=== PATIENT | female | born 1965 | race Hispanic/Latino ===

== ENCOUNTER 2016-10-21 09:58 | Emergency (ER) | payer BC ==
[2016-10-21 09:59] VITALS: BMI 33.0
[2016-10-21 10:11] VITALS: BP 169/93; PULSE 73; RESP 16; TEMP 98.1; O2SAT 96
--- NOTE | 2016-10-21 10:40 | ED PDOC ---
Arrival/HPI - General Chief Complaint: Abnormal Skin Integrity Time Seen by Provider: 10/21/16 10:23 Historian: Patient, Family - History of Present Illness Narrative History of Present Illness (Text): 10/21/16 10:37 This 51 yo female presents to this ED c/o pelvic rash x 1 day. Patient stated skin is red, and pruritic. Patient denies other complains. Time/Duration: Other (see hpi) Context: Home Past Medical History - Provider Review Nursing Documentation Reviewed: Yes - Infectious Disease Hx of Infectious Diseases: None - Tetanus Immunization Tetanus Immunization: Unknown - Cardiac Hx Hypertension: Yes Hx Pacemaker: No - Pulmonary Hx Chronic Obstructive Pulmonary Disease (COPD): Yes - Neurological Hx Neurological Disorder: No - HEENT Hx HEENT Disorder: No - Renal Hx Renal Disorder: No - Endocrine/Metabolic Hx Endocrine Disorders: No - Hematological/Oncological Hx Blood Disorders: No Hx Blood Transfusions: No Hx Blood Transfusion Reaction: No - Integumentary Hx Dermatological Disorder: No - Musculoskeletal/Rheumatological Hx Musculoskeletal Disorders: No Hx Falls: No - Gastrointestinal Hx Gastritis: Yes - Genitourinary/Gynecological Hx Genitourinary Disorders: No - Psychiatric Hx Anxiety: Yes Hx Depression: No Hx Substance Use: No - Past Surgical History Past Surgical History: Non-Contributing - Surgical History Hx Cholecystectomy: Yes Hx Hysterectomy: Yes - Anesthesia Hx Anesthesia: Yes Hx Anesthesia Reactions: No Hx Malignant Hyperthermia: No - Suicidal Assessment Feels Threatened In Home Enviroment: No Family/Social History - Physician Review Nursing Documentation Reviewed: Yes Family/Social History: Other (non-contributory) Smoking Status: Heavy Smoker > 10 Cigarettes Daily Hx Alcohol Use: No Hx Substance Use: No Hx Substance Use Treatment: No Allergies/Home Meds Allergies/Adverse Reactions: Allergies No Known Allergies Allergy (Verified 10/21/16 10:11) Home Medications: Home Meds Medication Instructions Recorded Confirmed Sertraline [Zoloft] 50 mg PO DAILY 08/10/11 10/21/16 Losartan [Cozaar] 50 mg PO DAILY 06/05/14 10/21/16 Review of Systems - Review of Systems Constitutional: Normal. absent: Fatigue, Weight Change, Fevers Eyes: Normal ENT: Normal Respiratory: Normal Cardiovascular: Normal Gastrointestinal: Normal Genitourinary Female: Normal Musculoskeletal: Normal Skin: Rash, Pruritis, Cellulitis. absent: Skin Lesions, Laceration, Abscess Neurological: Normal Endocrine: Normal Hemo/Lymphatic: Normal Psychiatric: Normal Physical Exam Vital Signs Temp Pulse Resp BP Pulse Ox 10/21/16 10:04 98.1 F 73 16 169/93 H 96 Temperature: Afebrile Blood Pressure: Normal Pulse: Regular Respiratory Rate: Normal Appearance: Positive for: Well-Appearing, Non-Toxic, Comfortable Pain Distress: None Mental Status: Positive for: Alert and Oriented X 3 - Systems Exam Head: Present: Atraumatic, Normocephalic Pupils: Present: PERRL Extroacular Muscles: Present: EOMI Conjunctiva: Present: Normal Mouth: Present: Moist Mucous Membranes Neck: Present: Normal Range of Motion Back: Present: Normal Inspection Upper Extremity: Present: Normal Inspection, Normal ROM. No: Cyanosis, Edema Lower Extremity: Present: Normal Inspection, Normal ROM. No: Edema Neurological: Present: GCS=15, CN II-XII Intact, Speech Normal Skin: Present: Warm, Dry, Rashes ((+) mild erythematous erythema on the folding of skin near old scar. It appears as candidiasis associated with mild cellulitis. No abscess, or ulcers), Normal Color Psychiatric: Present: Alert, Oriented x 3, Normal Insight, Normal Concentration Medical Decision Making ED Course and Treatment: 10/21/16 10:42 Re-evaluation. Patient feels better. Discussed results and plan with patient who expresses understanding. All questions answered and there is agreement with the plan to discharge home with instructions. Patient stable for discharge. Return if symptoms persist or worsen. Patient was recommended to f/u Melina in 2-3 days for wound check, and to return to emergency if symptoms worsen. Re-evaluation Time: 10:42 Reassessment Condition: Re-examined, Improved Disposition/Present on Arrival - Present on Arrival Any Indicators Present on Arrival: No History of DVT/PE: No History of Uncontrolled Diabetes: No Urinary Catheter: No History of Decub. Ulcer: No History Surgical Site Infection Following: None - Disposition Have Diagnosis and Disposition been Completed?: Yes Diagnosis: Cutaneous candidiasis, Cellulitis Disposition: HOME/ ROUTINE Disposition Time: 10:50 Isolation: Contact Patient Plan: Observation Patient Problems: Current Active Problems Problem Status Onset Cellulitis Acute Cutaneous candidiasis Acute Condition: GOOD Discharge Instructions (ExitCare): Cellulitis (ED), Skin Yeast Infection (ED) Additional Instructions: Call private doctor for wound check in 2-3 days. Take medication with food. Apply cream on affected area x 2 times a day for 2 weeks. Return to emergency if symptoms worsen. Prescriptions: Clindamycin [Cleocin] 300 mg PO QID #28 cap Referrals: Hernan Summers DO [Staff Provider] - Follow up with primary Forms: NCR ([place])
== END 2016-10-21 11:15 | disposition home or self-care (01) ==
LOC: ED 09:58
DX: B37.2 Candidiasis of skin and nail (principal); L03.311 Cellulitis of abdominal wall

== ENCOUNTER 2016-11-13 15:59 | Emergency (ER) | payer BC ==
[2016-11-13 16:11] VITALS: TEMP 97.9; BMI 33.9
[2016-11-13] MEDS ORDERED: Sodium Chloride 0.9% 1,000 ML IV STA (16:37)
[2016-11-13 17:16] LABS: BASO # 0.02 K/mm3 (0.0-2.0); BASO % 0.4 % (0.0-3.0); EOS # 0.2 (0.0-0.7); EOS % 4.5 % (1.5-5.0); GRAN # 2.91 (1.4-6.5); GRAN % 54.6 % (50.0-68.0); HEMATOCRIT 39.7 % (36.0-48.0); LYMPH # 1.8 (1.2-3.4); LYMPH % 34.1 % (22.0-35.0); MEAN CELL VOLUME 91.1 fl (80.0-105.0); MEAN PLATELET VOLUME 10.1 fl (7.0-11.0); MONO # 0.3 (0.1-0.6); MONO % 6.4 % (1.0-6.0); RED CELL DISTRIBUTION WIDTH 13.6 % (11.5-14.5); WHITE BLOOD COUNT 5.3 10^3/ul (4.5-11.0)
[2016-11-13 17:20] LABS: ALB/GLOB RATIO 1.7 (1.1-1.8); ALKALINE PHOSPHATASE 83 U/L (38-126); ALT/SGPT 42 U/L (7-56); AST/SGOT 25 U/L (14-36); BILIRUBIN,TOTAL 0.3 mg/dL (0.2-1.3); BLOOD UREA NITROGEN 16 mg/dL (7-21); CALCIUM 8.7 mg/dL (8.4-10.5); CARBON DIOXIDE 30 mmol/L (21-33); CHLORIDE 105 mmol/L (98-107); GFR AFRICAN-AMERICAN > 60; GLUCOSE,RANDOM 126 mg/dL (70-110); LIPASE 119 U/L (23-300); POTASSIUM 3.9 mmol/L (3.6-5.0); SODIUM 142 mmol/L (132-148); TOTAL PROTEIN 5.9 g/dL (5.8-8.3)
--- NOTE | 2016-11-13 17:23 | RAD ---
HISTORY: abd pain COMPARISON: Chest x-ray performed 01/14/16 TECHNIQUE: Chest, one view. FINDINGS: Examination limited by habitus. LUNGS: No focal consolidation. Please note that chest x-ray has limited sensitivity for the detection of pulmonary masses. PLEURA: No significant pleural effusion identified. No definite pneumothorax . CARDIOVASCULAR: Heart size appears within normal limits. OSSEOUS STRUCTURES: Degenerative changes. High-riding right humeral head may be seen in setting of chronic rotator cuff injury. VISUALIZED UPPER ABDOMEN: Unremarkable. OTHER FINDINGS: None. IMPRESSION: No focal consolidation, significant pleural effusion, or definite pneumothorax identified. High-riding right humeral head may be seen in setting of chronic rotator cuff injury. Correlate clinically.
--- NOTE | 2016-11-13 17:28 | ED PDOC ---
Arrival/HPI - General Chief Complaint: GI Problem Time Seen by Provider: 11/13/16 16:36 Historian: Patient - History of Present Illness Narrative History of Present Illness (Text): 11/13/16 17:25 51yr old female presents today with left sided abdominal pain, diarrhea and nausea x 1 week. no cp or sob. no fever/chills. no urinary symptoms. pt states she started with sharp stabbing left lower abdominal pain and developed watery diarrhea. pt states she took immodium with slight improvement. pt states diarrhea returned and pain has worsened. no other complaints. Time/Duration: 1 week Symptom Onset: Gradual Symptom Course: Worsening Quality: Aching, Stabbing Severity Level: 6 Past Medical History - Provider Review Nursing Documentation Reviewed: Yes - Travel History Have you recently traveled outside [place] w/in the past 3 mons?: No - Infectious Disease Hx of Infectious Diseases: None - Tetanus Immunization Tetanus Immunization: Unknown - Cardiac Hx Hypertension: Yes Hx Pacemaker: No - Pulmonary Hx Chronic Obstructive Pulmonary Disease (COPD): Yes - Neurological Hx Neurological Disorder: No - HEENT Hx HEENT Disorder: No - Renal Hx Renal Disorder: No - Endocrine/Metabolic Hx Endocrine Disorders: No - Hematological/Oncological Hx Blood Disorders: No Hx Blood Transfusions: No Hx Blood Transfusion Reaction: No - Integumentary Hx Dermatological Disorder: No - Musculoskeletal/Rheumatological Hx Musculoskeletal Disorders: No Hx Falls: No - Gastrointestinal Hx Gastritis: Yes - Genitourinary/Gynecological Hx Genitourinary Disorders: No - Psychiatric Hx Anxiety: Yes Hx Depression: No Hx Substance Use: No - Past Surgical History Past Surgical History: Non-Contributing - Surgical History Hx Cholecystectomy: Yes Hx Hysterectomy: Yes - Anesthesia Hx Anesthesia: Yes Hx Anesthesia Reactions: No Hx Malignant Hyperthermia: No - Suicidal Assessment Feels Threatened In Home Enviroment: No Family/Social History - Physician Review Nursing Documentation Reviewed: Yes Family/Social History: Unknown Family HX Smoking Status: Heavy Smoker > 10 Cigarettes Daily Hx Alcohol Use: No Hx Substance Use: No Hx Substance Use Treatment: No Allergies/Home Meds Allergies/Adverse Reactions: Allergies No Known Allergies Allergy (Verified 10/21/16 10:11) Home Medications: Home Meds Medication Instructions Recorded Confirmed Sertraline [Zoloft] 50 mg PO DAILY 08/10/11 11/13/16 Losartan [Cozaar] 50 mg PO DAILY 06/05/14 11/13/16 Review of Systems - Review of Systems Constitutional: absent: Fatigue, Fevers Respiratory: absent: SOB, Cough Cardiovascular: absent: Chest Pain, Palpitations Gastrointestinal: Abdominal Pain, Diarrhea, Nausea. absent: Constipation, Vomiting Genitourinary Female: absent: Dysuria, Frequency, Hematuria Musculoskeletal: absent: Arthralgias, Back Pain, Neck Pain Skin: absent: Rash, Pruritis Neurological: absent: Headache, Dizziness Psychiatric: absent: Anxiety, Depression, Suicidal Ideation Physical Exam Vital Signs Reviewed: Yes Vital Signs Temp Pulse Resp BP Pulse Ox 11/13/16 18:00 58 L 18 149/92 H 98 11/13/16 16:10 97.9 F 71 16 143/90 96 Temperature: Afebrile Blood Pressure: Normal Pulse: Regular Respiratory Rate: Normal Appearance: Positive for: Well-Appearing, Non-Toxic, Comfortable Pain Distress: None Mental Status: Positive for: Alert and Oriented X 3 - Systems Exam Head: Present: Atraumatic Mouth: Present: Moist Mucous Membranes Neck: Present: Normal Range of Motion Respiratory/Chest: Present: Clear to Auscultation, Good Air Exchange. No: Respiratory Distress, Accessory Muscle Use Cardiovascular: Present: Regular Rate and Rhythm, Normal S1, S2. No: Murmurs Abdomen: Present: Tenderness (LLQ tenderness), Normal Bowel Sounds. No: Distention, Peritoneal Signs, Rebound, Guarding Back: Present: Normal Inspection. No: CVA Tenderness, Midline Tenderness, Paraspinal Tenderness Upper Extremity: Present: Normal ROM Lower Extremity: Present: Normal ROM Neurological: Present: GCS=15, Speech Normal Skin: Present: Warm, Dry, Normal Color. No: Rashes Psychiatric: Present: Alert, Oriented x 3 Medical Decision Making ED Course and Treatment: 11/13/16 17:28 Patient is nontoxic well appearing with stable vital signs presenting with llq abdominal pain CBC wnl CMP wnl Lipase wnl Urinalysis wnl CAT scan FINDINGS: Artifacts: Motion artifact degrades image quality. Lower thorax: Heart size is normal. There is a small hiatal hernia. There is dependent atelectasis at the lung bases. ABDOMEN: Liver: There is fatty infiltration of the liver. Gallbladder and bile ducts: Gallbladder is surgically absent. Common duct is prominent. Pancreas: unremarkable Spleen: unremarkable Adrenals: unremarkable Kidneys and ureters: unremarkable Stomach and bowel: Stomach is almost empty. Rotation is normal. There is mild duodenal and proximal jejunal wall and fold thickening. Mid small bowel is mildly distended with fluid and air. Distention decreases distally. There is mild terminal ileal wall thickening with fatty infiltration of the terminal ileal wall. Appendix is unremarkable. There is fatty infiltration of the cecum and ascending colon wall.Colon is incompletely distended which limits evaluation.There is diverticulosis. There is sigmoid and rectal wall thickening. Appendix: See above. PELVIS: Bladder: Bladder is almost empty. There is mild bladder wall thickening. Reproductive: Uterus and adnexal structures are unremarkable. ABDOMEN and PELVIS: Intraperitoneal space: There is no free air or free fluid. Bones/joints: There are no acute osseous abnormalities. There is minimal degenerative change Soft tissues: There is a small fat containing umbilical hernia. Vasculature: There are vascular calcifications. Aorta is mildly tortuous. Lymph nodes: There is no pathologic adenopathy. IMPRESSION: Colitis versus enterocolitis; mild bladder wall thickening, underdistention versus inflammation; fatty liver; cholecystectomy Case was discussed in depth with Dr. Summers. We'll discharge the patient home on Cipro and Flagyl and advised follow-up with him as well as GI. Patient reassessment: Patient feeling better after medications. I discussed all results in depth with the patient advised taking antibiotics as prescribed following up with a primary care physician as well as the GI doctor. I advised immediate return if symptoms worsen persist or if new concerning symptoms develop Patient verbalizes understanding of discharge instructions and need for immediate followup. all aspects of this case were discussed the attending of record. Impression: colitis Motrin every 6 hours as needed for pain Cipro one tablet twice daily x10 days Flagyl one tablet three times daily x10 days Follow up with primary care physician within the next 2 days Return immediately if symptoms worsen persist or if new symptoms develop: High fevers, increasing pain, vomiting, diarrhea or any other concerning symptoms develop - Lab Interpretations Lab Results: 11/13/16 17:00 11/13/16 17:00 Lab Results 11/13/16 17:50: Urine Color Yellow, Urine Appearance Clear, Urine pH 6.5, Ur Specific [place] 1.020, Urine Protein Negative, Urine Glucose (UA) Negative, Urine Ketones Negative, Urine Blood Negative, Urine Nitrate Negative, Urine Bilirubin Negative, Urine Urobilinogen 0.2, Ur Leukocyte Esterase Negative 11/13/16 17:00: WBC 5.3, RBC 4.36, Hgb 13.1, Hct 39.7, MCV 91.1, MCH 30.0, MCHC 33.0, RDW 13.6, Plt Count 176, MPV 10.1, Gran % 54.6, Lymph % (Auto) 34.1, [place] % (Auto) 6.4 H, Eos % (Auto) 4.5, Baso % (Auto) 0.4, Gran # 2.91, Lymph # 1.8, [place] # 0.3, Eos # 0.2, Baso # 0.02 11/13/16 17:00: Sodium 142, Potassium 3.9, Chloride 105, Carbon Dioxide 30, Anion Gap 11, BUN 16, Creatinine 0.9, Est GFR ( Amer) > 60, Est GFR (Non- Af Amer) > 60, Random Glucose 126 H, Calcium 8.7, Total Bilirubin 0.3, AST 25, ALT 42, Alkaline Phosphatase 83, Total Protein 5.9, Albumin 3.7, Globulin 2.2, Albumin/Globulin Ratio 1.7, Lipase 119 I have reviewed the lab results: Yes - RAD Interpretation Radiology Orders: 11/13/16 16:37 CHEST PORTABLE [RAD] Stat 11/13/16 16:59 ABD & PELVIS IV CONTRAST ONLY [CT] Stat - Medication Orders Current Medication Orders: Discontinued Medications Sodium Chloride (Sodium Chloride 0.9%) 1,000 mls @ 999 mls/hr IV .Q1H1M STA Stop: 11/13/16 17:37 Last Admin: 11/13/16 17:46 Dose: 999 mls/hr eMAR Start Stop Document 11/13/16 17:46 ME (Rec: 11/13/16 17:47 ME [id number]) Intravenous Solution Start Date 11/13/16 Start Time 17:47 Ketorolac Tromethamine (Toradol) 30 mg IVP STAT STA Stop: 11/13/16 17:30 Last Admin: 11/13/16 17:47 Dose: 30 mg MAR Pain Assessment Document 11/13/16 17:47 ME (Rec: 11/13/16 17:48 ME [id number]) Pain Reassessment Is this a pain reassessment? No Sleep Is patient sleeping during reassessment? No Pain Scale Used Pain Scale Used Numeric Location Pain Location Body Site Abdomen Description Intensity of Pain at present 7 Acceptable Level of Pain 2 IVP Administration Document 11/13/16 17:47 ME (Rec: 11/13/16 17:48 ME [id number]) Charges for Administration # of IVP Administrations 1 Disposition/Present on Arrival - Present on Arrival Any Indicators Present on Arrival: No History of DVT/PE: No History of Uncontrolled Diabetes: No Urinary Catheter: No History of Decub. Ulcer: No History Surgical Site Infection Following: None - Disposition Have Diagnosis and Disposition been Completed?: Yes Diagnosis: Colitis Disposition: HOME/ ROUTINE Disposition Time: 21:53 Patient Plan: Discharge Condition: GOOD Discharge Instructions (ExitCare): Colitis (ED) Additional Instructions: Motrin every 6 hours as needed for pain Cipro one tablet twice daily x10 days Flagyl one tablet three times daily x10 days Follow up with primary care physician within the next 2 days Return immediately if symptoms worsen persist or if new symptoms develop: High fevers, increasing pain, vomiting, diarrhea or any other concerning symptoms develop Prescriptions: Ciprofloxacin [Cipro] 500 mg PO BID #20 tab Ibuprofen [Motrin] 600 mg PO Q6H PRN #20 tab PRN Reason: pain/fever reduction metroNIDAZOLE [Flagyl] 500 mg PO TID #30 tab Referrals: Hernan Summers DO [Primary Care Provider] - Follow up with primary Danish Bonilla MD [Staff Provider] - Follow up with primary Mita Whiteside MD, MD [Medical Doctor] - Follow up with primary Forms: [employer] (German), WORK NOTE
[2016-11-13 18:16] LABS: PH,URINE 6.5 (4.7-8.0); URINE BILIRUBIN NEGATIVE (NEGATIVE); URINE BLOOD NEGATIVE (NEGATIVE); URINE GLUCOSE (UA) NEGATIVE (NEGATIVE); URINE KETONE NEGATIVE (NEGATIVE); URINE LEUKOCYTE ESTERASE NEGATIVE Leu/uL (NEGATIVE); URINE PROTEIN NEGATIVE mg/dL (<30 mg/dL); URINE UROBILINOGEN 0.2 E.U./dL (<1 E.U./dL)
[2016-11-13 18:19] LABS: URINE APPEARANCE CLEAR (CLEAR); URINE COLOR YELLOW (YELLOW)
[2016-11-13] MEDS ORDERED: Iohexol 350 MG/100 ML VIAL ONE (18:49)
--- NOTE | 2016-11-13 21:05 | CT ---
EXAM: CT Abdomen and Pelvis With Intravenous Contrast EXAM DATE/TIME: 11/13/2016 4:59 PM CLINICAL HISTORY: 51 years old, female; Pain; Abdominal pain; Acute; Additional info: Llq abd pain, diarrhea TECHNIQUE: Axial computed tomography images of the abdomen and pelvis with intravenous contrast. All CT scans at this facility use one or more dose reduction techniques, viz.: automated exposure control; ma/kV adjustment per patient size (including targeted exams where dose is matched to indication; i.e. head); or iterative reconstruction technique. Coronal and sagittal reformatted images were created and reviewed. CONTRAST: 100 mL of omni 350 administered intravenously. COMPARISON: There are no prior studies for comparison. FINDINGS: Artifacts: Motion artifact degrades image quality. Lower thorax: Heart size is normal. There is a small hiatal hernia. There is dependent atelectasis at the lung bases. ABDOMEN: Liver: There is fatty infiltration of the liver. Gallbladder and bile ducts: Gallbladder is surgically absent. Common duct is prominent. Pancreas: unremarkable Spleen: unremarkable Adrenals: unremarkable Kidneys and ureters: unremarkable Stomach and bowel: Stomach is almost empty. Rotation is normal. There is mild duodenal and proximal jejunal wall and fold thickening. Mid small bowel is mildly distended with fluid and air. Distention decreases distally. There is mild terminal ileal wall thickening with fatty infiltration of the terminal ileal wall. Appendix is unremarkable. There is fatty infiltration of the cecum and ascending colon wall.Colon is incompletely distended which limits evaluation.There is diverticulosis. There is sigmoid and rectal wall thickening. Appendix: See above. PELVIS: Bladder: Bladder is almost empty. There is mild bladder wall thickening. Reproductive: Uterus and adnexal structures are unremarkable. ABDOMEN and PELVIS: Intraperitoneal space: There is no free air or free fluid. Bones/joints: There are no acute osseous abnormalities. There is minimal degenerative change Soft tissues: There is a small fat containing umbilical hernia. Vasculature: There are vascular calcifications. Aorta is mildly tortuous. Lymph nodes: There is no pathologic adenopathy. IMPRESSION: Colitis versus enterocolitis; mild bladder wall thickening, underdistention versus inflammation; fatty liver; cholecystectomy Additional findings as described above.
[2016-11-13 21:57] VITALS: BP 179/90; PULSE 62; RESP 14; O2SAT 99
--- NOTE | 2016-11-15 10:26 | CARD ---
APPROVED REPORT EKG Measurement Heart [id number] <Conclusion> Sinus bradycardia Low voltage QRS Nonspecific T wave abnormality Abnormal ECG
== END 2016-11-13 22:10 | disposition home or self-care (01) ==
LOC: ED 15:59
DX: K52.9 Noninfective gastroenteritis and colitis, unspecified (principal)
CPT/HCPCS: 71010; 74177; 80053; 81003; 83690; 85025; 96374; 99285; J1885; J7040; Q9967

== ENCOUNTER 2017-07-06 11:09 | Emergency (ER) | payer BC ==
[2017-07-06 11:25] VITALS: BMI 34.9
[2017-07-06 11:29] VITALS: RESP 18; TEMP 98.1; O2SAT 98
[2017-07-06] MEDS: Albuterol-Ipratrop 3 mg / 0.5 (3 ml) UD IH SCH ×3 (11:54→12:23)
--- NOTE | 2017-07-06 12:02 | ED PDOC ---
Arrival/HPI - General Time Seen by Provider: 07/06/17 11:13 Historian: Patient - History of Present Illness Narrative History of Present Illness (Text): 07/06/17 11:58 Patient is a 52 F with history of COPD, hypertension who presents with complaints of difficulty breathing and chest tightness once she began smoking two days ago after being on chantix and not smoking for a couple of weeks. Patient states she has associated productive cough and rib tenderness. Denies fevers, chills, abdominal pain, nausea, vomiting, diarrhea, headache, dysuria, chest pain, palpitations. Time/Duration: Prior to Arrival Symptom Onset: Gradual Symptom Course: Unchanged Quality: Aching Past Medical History - Provider Review Nursing Documentation Reviewed: Yes - Infectious Disease Hx of Infectious Diseases: None - Tetanus Immunization Tetanus Immunization: Unknown - Cardiac Hx Cardiac Disorders: Yes Hx Hypertension: Yes Hx Pacemaker: No - Pulmonary Hx Chronic Obstructive Pulmonary Disease (COPD): Yes Hx Sleep Apnea: Yes - Neurological Hx Neurological Disorder: No - HEENT Hx HEENT Disorder: No - Renal Hx Renal Disorder: No - Endocrine/Metabolic Hx Endocrine Disorders: No - Hematological/Oncological Hx Blood Disorders: No Hx Blood Transfusions: No Hx Blood Transfusion Reaction: No - Integumentary Hx Dermatological Disorder: No - Musculoskeletal/Rheumatological Hx Musculoskeletal Disorders: No Hx Falls: No - Gastrointestinal Hx Gastritis: Yes - Genitourinary/Gynecological Hx Genitourinary Disorders: No - Psychiatric Hx Psychophysiologic Disorder: Yes Hx Anxiety: Yes Hx Depression: No Hx Substance Use: No - Past Surgical History Past Surgical History: Non-Contributing - Surgical History Hx Cholecystectomy: Yes Hx Hysterectomy: Yes - Anesthesia Hx Anesthesia: Yes Hx Anesthesia Reactions: No Hx Malignant Hyperthermia: No - Suicidal Assessment Feels Threatened In Home Enviroment: No Family/Social History - Physician Review Nursing Documentation Reviewed: Yes Family/Social History: Neoplasm/Cancer (Stomach cancer grandmother), Other (COPD -father) Smoking Status: Heavy Smoker > 10 Cigarettes Daily Hx Alcohol Use: No Hx Substance Use: No Hx Substance Use Treatment: No Allergies/Home Meds Allergies/Adverse Reactions: Allergies No Known Allergies Allergy (Verified 12/17/16 16:02) Home Medications: Home Meds Medication Instructions Recorded Confirmed Sertraline [Zoloft] 50 mg PO DAILY 08/10/11 12/17/16 Losartan [Cozaar] 50 mg PO DAILY 06/05/14 12/17/16 Review of Systems - Physician Review All systems were reviewed & negative as marked: Yes - Review of Systems Constitutional: Normal. absent: Fatigue, Fevers Eyes: absent: Vision Changes Respiratory: SOB, Cough, Sputum. absent: Wheezing Cardiovascular: absent: Chest Pain, Palpitations Gastrointestinal: Normal. absent: Abdominal Pain, Nausea, Vomiting Genitourinary Female: Normal. absent: Dysuria Musculoskeletal: Normal. absent: Back Pain Neurological: Normal. absent: Headache, Dizziness Endocrine: Normal. absent: Diaphoresis Psychiatric: Normal. absent: Anxiety Physical Exam Vital Signs Reviewed: Yes Vital Signs Temp Pulse Resp BP Pulse Ox 07/06/17 14:09 67 18 138/79 98 07/06/17 12:33 65 18 145/81 98 07/06/17 11:10 98.1 F 66 18 149/95 H 98 Temperature: Afebrile Blood Pressure: Normal Pulse: Regular Respiratory Rate: Normal Appearance: Positive for: Well-Appearing, Non-Toxic, Comfortable Pain Distress: None Mental Status: Positive for: Alert and Oriented X 3 - Systems Exam Head: Present: Atraumatic, Normocephalic, Ecchymosis Pupils: Present: PERRL Extroacular Muscles: Present: EOMI Conjunctiva: Present: Normal Mouth: Present: Moist Mucous Membranes Neck: Present: Normal Range of Motion Respiratory/Chest: Present: Clear to Auscultation. No: Wheezes, Rales, Rhonchi Cardiovascular: Present: Regular Rate and Rhythm, Normal S1, S2 Abdomen: Present: Normal Bowel Sounds. No: Tenderness, Distention Upper Extremity: Present: Normal Inspection, Other (no clubbing). No: Edema Lower Extremity: Present: Normal Inspection. No: Edema Neurological: Present: GCS=15, CN II-XII Intact, Speech Normal Skin: Present: Warm, Normal Color Psychiatric: Present: Alert, Oriented x 3, Normal Insight, Normal Concentration Medical Decision Making ED Course and Treatment: 07/06/17 12:04 Duonenoam, Solu-Medrol Chest X-Ray-2 view Motrin for pain possible costochondritis 07/06/17 14:15 Chest X-Ray came back with bronchovascular markings, left lung atelectasis will discharge patient with nasal spray and prednisone. 07/06/17 14:26 FINDINGS: LUNGS: Low lung volumes with crowded bronchovascular markings and minor bibasilar atelectasis left greater than right PLEURA: No significant pleural effusion identified. No pneumothorax apparent. CARDIOVASCULAR: Normal. OSSEOUS STRUCTURES: No significant abnormalities. Clips right upper quadrant of the abdomen consistent with prior cholecystectomy VISUALIZED UPPER ABDOMEN: OTHER FINDINGS: None. IMPRESSION: Low lung volumes with crowded bronchovascular markings and minor bibasilar atelectasis left greater than right Patient had no abnormalities in lab values, discharged with ocean nasal spray and prednisone and will follow up with her c java developer in 4 days and PMD within 1 week, PMD aware of patient being admitted to the emergency department. Re-evaluation Time: 14:21 (Patient states her breathing and pain has improved since duonebs, solumedrol and motrin.) Reassessment Condition: Re-examined - Lab Interpretations Lab Results: 07/06/17 13:15 07/06/17 13:15 Lab Results 07/06/17 13:15: Sodium 142, Potassium 4.2, Chloride 108 H, Carbon Dioxide 25, Anion Gap 13, BUN 13, Creatinine 0.7, Est GFR ( Amer) > 60, Est GFR (Non- Af Amer) > 60, Random Glucose 81, Calcium 8.3 L, Troponin I < 0.01 07/06/17 13:15: WBC 3.8 L D, RBC 4.40, Hgb 13.1 D, Hct 38.9, MCV 88.4, MCH 29.8 , MCHC 33.7, RDW 14.0, Plt Count 177, MPV 10.4, Gran % 48.9 L, Lymph % (Auto) 38.7 H, [place] % (Auto) 8.4 H, Eos % (Auto) 3.7, Baso % (Auto) 0.3, Gran # 1.87, Lymph # (Auto) 1.5, [place] # (Auto) 0.3, Eos # (Auto) 0.1, Baso # (Auto) 0.01 I have reviewed the lab results: Yes Interpretation: All labs normal - RAD Interpretation Radiology Orders: 07/06/17 11:47 CHEST TWO VIEWS (PA/LAT) [RAD] Stat Sales Producer: Radiologist - EKG Interpretation Interpreted by ED Physician: Yes Type: 12 lead EKG - Medication Orders Current Medication Orders: Discontinued Medications Albuterol/Ipratropium (Duoneb 3 Mg/0.5 Mg (3 Ml) Ud) 3 ml IH Q15M MAIA Stop: 07/06/17 12:31 Last Admin: 07/06/17 12:23 Dose: 3 ml Ibuprofen (Motrin Tab) 600 mg PO STAT STA Stop: 07/06/17 11:51 Last Admin: 07/06/17 11:56 Dose: 600 mg MAR Pain/Vitals Document 07/06/17 11:56 STEPHANIE (Rec: 07/06/17 11:59 STEPHANIE [id number]) Pain Reassessment Is This A Pain ReAssessment? Yes Presence of Pain Presence of Pain Yes Pain Scale Used Pain Scale Used Numeric Location Pain Location Body Site Chest Description Sharp Intensity 6 Scale Used Numeric Methylprednisolone (Solu-Medrol) 125 mg IVP STAT STA Stop: 07/06/17 11:48 Last Admin: 07/06/17 12:00 Dose: 125 mg IVP Administration Document 07/06/17 12:00 STEPHANIE (Rec: 07/06/17 12:00 STEPHANIE [id number]) Charges for Administration # of IVP Administrations 1 Disposition/Present on Arrival - Present on Arrival Any Indicators Present on Arrival: No History of DVT/PE: No History of Uncontrolled Diabetes: No Urinary Catheter: No History of Decub. Ulcer: No History Surgical Site Infection Following: None - Disposition Have Diagnosis and Disposition been Completed?: Yes Diagnosis: COPD with emphysema Disposition: HOME/ ROUTINE Disposition Time: 14:21 Patient Plan: Discharge Condition: GOOD Discharge Instructions (ExitCare): COPD Including Emphysema (DC) Additional Instructions: Ms. Mike, thank you for letting us take care of you today. You were treated for your COPD flare up. The emergency medical care you received today was directed at your acute symptoms. If you were prescribed any medication, please fill it and take as directed. It may take several days for your symptoms to resolve. Return to the Emergency Department if your symptoms worsen, do not improve, or if you have any other problems. Please contact your doctor or call one of the physicians/clinics you have been referred to that are listed on the Patient Visit Information form that is included in your discharge packet. Bring any paperwork you were given at discharge with you along with any medications you are taking to your follow up visit. Our treatment cannot replace ongoing medical care by a primary care provider (PCP) outside of the emergency department. Please follow up with your PMD Dr. Summers withing 2-5 days and follow through with your c java developer appointment this coming Saturday as discussed. Thank you for allowing the [facility] team to be part of your care today. If you had an X-Ray or CT scan: A Radiologist will review the ED reading if any change in treatment is needed we will contact you. If you had a blood, urine, or wound culture: It will take several days for the results, if any change in treatment is needed we will contact you. If you had an STI test: It will take 48 hours for the results. Please call after 1 week if you have not heard back. Prescriptions: Prednisone [Deltasone] 20 mg PO BID #5 tablet Sodium Chloride Nasal [place] [Bandera Nasal [place]] 45 sprays JODY DAILY #1 bottle
[2017-07-06 13:35] LABS: BASO # 0.01 K/mm3 (0.0-2.0); BASO % 0.3 % (0.0-3.0); EOS # 0.1 (0.0-0.7); EOS % 3.7 % (1.5-5.0); GRAN # 1.87 (1.4-6.5); GRAN % 48.9 % (50.0-68.0); HEMOGLOBIN 13.1 g/dL (12.0-16.0); LYMPH # 1.5 (1.2-3.4); LYMPH % 38.7 % (22.0-35.0); MEAN CELL VOLUME 88.4 fl (80.0-105.0); MEAN CORPUSCULAR HEMOGLOBIN 29.8 pg (25.0-35.0); MEAN CORPUSCULAR HGB CONC 33.7 g/dl (31.0-37.0); MEAN PLATELET VOLUME 10.4 fl (7.0-11.0); MONO # 0.3 (0.1-0.6); MONO % 8.4 % (1.0-6.0); RBC 4.4 10^6/uL (3.5-6.1); WHITE BLOOD COUNT 3.8 10^3/ul (4.5-11.0)
[2017-07-06 13:45] LABS: CALCIUM 8.3 mg/dL (8.4-10.5); GFR AFRICAN-AMERICAN > 60; GFR NON-AFRICAN AMERICAN > 60
[2017-07-06 13:49] LABS: BLOOD UREA NITROGEN 13 mg/dL (7-21)
[2017-07-06 13:56] LABS: TROPONIN I < 0.01 ng/mL
--- NOTE | 2017-07-06 14:03 | RAD ---
HISTORY: COPD COMPARISON: No prior. TECHNIQUE: Chest PA and lateral FINDINGS: LUNGS: Low lung volumes with crowded bronchovascular markings and minor bibasilar atelectasis left greater than right PLEURA: No significant pleural effusion identified. No pneumothorax apparent. CARDIOVASCULAR: Normal. OSSEOUS STRUCTURES: No significant abnormalities. Clips right upper quadrant of the abdomen consistent with prior cholecystectomy VISUALIZED UPPER ABDOMEN: OTHER FINDINGS: None. IMPRESSION: Low lung volumes with crowded bronchovascular markings and minor bibasilar atelectasis left greater than right
[2017-07-06 14:10] VITALS: PULSE 67
[2017-07-06 14:34] VITALS: BP 139/79
--- NOTE | 2017-07-07 08:59 | CARD ---
APPROVED REPORT EKG Measurement Heart [id number] <Conclusion> Sinus bradycardia Nonspecific T wave abnormality Abnormal ECG
== END 2017-07-06 14:34 | disposition home or self-care (01) ==
LOC: ED 11:09
DX: J43.9 Emphysema, unspecified (principal); I10 Essential (primary) hypertension; F17.210 Nicotine dependence, cigarettes, uncomplicated
CPT/HCPCS: 71046; 80048; 84484; 85025; 93005; 94640; 96374; 99283; J2930